=== PATIENT | male | born 1960 | race Caucasian/White ===

== ENCOUNTER 2017-12-16 23:44 | Emergency (ER) | payer MEDICARE, OTHER ==
[2017-12-16 23:45] VITALS: BMI 30.9
[2017-12-16 23:59] VITALS: BP 173/82; PULSE 79; RESP 16; TEMP 98; O2SAT 98
--- NOTE | 2017-12-17 00:02 | C.PDOC ---
History Of Present Illness 57 y/o male presents to ED for evaluation of right upper toothache intermittent for few week. Patient states pain became severe "for few hours" with radiation to right ear. Patient denies fever, chills, headache, dizziness, drooling, trismus, dyspnea, cough, CP, SOB, denies facial swelling or redness, denies recent dental work. Ambulate to Ed for evaluation, not in nay apparent distress. Time Seen by Provider: 12/16/17 23:47 Chief Complaint (Nursing): Dental Pain History Per: Patient History/Exam Limitations: no limitations Onset/Duration Of Symptoms: Days Current Symptoms Are (Timing): Still Present Past Medical History Reviewed: Historical Data, Nursing Documentation, Vital Signs Vital Signs: Last Vital Signs Temp 98 F 12/16/17 23:54 Pulse 79 12/16/17 23:54 Resp 16 12/16/17 23:54 BP 173/82 H 12/16/17 23:54 Pulse Ox 98 12/17/17 11:58 - Medical History PMH: HTN Surgical History: No Surg Hx - [facility] COLONOSCOPY (12/04/12) Family History: States: No Known Family Hx - Social History Hx Alcohol Use: No Hx Substance Use: No - Immunization History Hx Tetanus Toxoid Vaccination: No Hx Influenza Vaccination: No Hx Pneumococcal Vaccination: No Review Of Systems Constitutional: Negative for: Fever, Chills ENT: Positive for: Ear Pain, Mouth Pain. Negative for: Ear Discharge, Mouth Swelling Gastrointestinal: Negative for: Nausea, Vomiting Skin: Negative for: Rash Physical Exam - Physical Exam Appears: Well, Non-toxic, No Acute Distress Skin: Warm, Dry, No Rash Head: Normacephalic Eye(s): bilateral: PERRL Ear(s): Bilateral: Normal Nose: No Flaring, No Discharge Oral Mucosa: Moist, No Drooling, No Trismus Tongue: Normal Appearing Lips: Normal Appearing, No Swelling Teeth: Tender To Palpation, Other (right upper 2nd molar tenderness and swelling with surrounding erythema) Gingiva: Erythema (Right upper 2nd molar), No Bleeding, No Abscess Throat: No Erythema, No Exudate, No Drooling, Other (uvul amidline, no edema.) Neck: Trachea Midline, Supple Lymphatic: No Adenopathy (cervical) Chest: Symmetrical Cardiovascular: Rhythm Regular, No Murmur, No JVD Respiratory: No Decreased Breath Sounds, No Accessory Muscle Use, No Stridor, No Wheezing Extremity: Normal ROM Neurological/Psych: Oriented x3, Normal Speech ED Course And Treatment O2 Sat by Pulse Oximetry: 98 (RA) Pulse Ox Interpretation: Normal Progress Note: On re-evaluation, pt is afebrile, hemodynamicaly stable. Non- toxic, tolerate Po well in ED. PulsEOx 98% RA ENT: (+) exam c.w Right upper 2nd molar gingivitis r/o early tooth abscess, No facial edema or cellulitis/ erythema. no drooling or trismus. neck: Supple, (-) lymphodenopathy Lungs: CTA B/L, BS equal B/L. Pt advised. ref. to f/u with Dentist in 2 days for re- eval. return if any worseningor new changes. Disposition Counseled Patient/Family Regarding: Diagnosis, Need For Followup, Rx Given - Disposition Referrals: [facility] [Provider Group] [facility] [Provider Group] Disposition: HOME/ ROUTINE Disposition Time: 00:00 Condition: STABLE Additional Instructions: Take medication as prescribed Follow up with Dentist in 1-2 days for re-evaluation. return if any new changes. Prescriptions: Penicillin VK [Penicillin VK Tab] 500 mg PO Q6 #28 tab traMADol [Ultram] 50 mg PO TID #7 tab Instructions: Dental Pain Forms: [facility] (Slovak) - Clinical Impression Clinical Impression: Pain, dental - PA / FOOT TENDER / Resident Statement MD/DO has reviewed & agrees with the documentation as recorded. - Scribe Statement The provider has reviewed the documentation as recorded by the Joanaibraffi Abraham All medical record entries made by the Tabitha were at my direction and personally dictated by me. I have reviewed the chart and agree that the record accurately reflects my personal performance of the history, physical exam, medical decision making, and the department course for this patient. I have also personally directed, reviewed, and agree with the discharge instructions and disposition.
== END 2017-12-17 00:17 | disposition home or self-care (01) ==
LOC: C.ER 23:44
DX: K08.89 Other specified disorders of teeth and supporting structures (principal)